=== PATIENT | male | born 1985 | race Caucasian/White ===

== ENCOUNTER 2016-04-02 02:27 | Emergency (ER) | payer OTHER ==
[~2016-04-02] VITALS: Ht 190.5 cm; Wt 145.1 kg
[2016-04-02] MEDS ORDERED: NKM (02:46)
[2016-04-02 02:50] VITALS: BP 136/84
[2016-04-02] MEDS ORDERED: PRILOSEC OTC20 MG ORAL (04:20)
[2016-04-02] MEDS ORDERED: BENTYL10 MG ORAL (04:20)
[2016-04-02 04:30] VITALS: BP 130/86
[2016-04-02] MEDS ORDERED: Dicyclomine HCl 10mg/5ml oral soln ORAL ONE (04:30)
[2016-04-02] MEDS ORDERED: Lidocaine 2% Visc 15ml soln ORAL ONE (04:30)
[2016-04-02 04:35] VITALS: BP 130/86
--- NOTE | 2016-04-02 09:57 | Emergency Room Report ---
History of Present Illness General Chief Complaint: Abdominal Pain Source: Patient Present Illness HPI The patient is a 31-year-old male who presented after increased right upper quadrant pain. Patient had onset of symptoms approximately 5 hours prior to arrival. Patient stated that he had similar type symptoms in the past. This is worsened by food. The patient denied any hematemesis or bloody stools. Patient stated that he had recently had increased alcohol ingestion over the weekend. He had prior appendectomy. Patient denied any fever. Pain had resolved by the time he was examined. Allergies: Coded Allergies: No Known Allergies (Unverified , 04/02/16) Patient History Past Medical History: see triage record Reviewed Nursing Documentation: PMH: Agreed, PSxH: Agreed Nursing Documentation-PMH Past Medical History: No Stated History Review of Systems All Other Systems: negative except mentioned in HPI Physical Exam Vital Signs Date Time Temp Pulse Resp B/P Pulse Ox O2 Delivery O2 Flow Rate FiO2 04/02/16 02:39 97.5 78 16 133/83 100 Room Air Sp02 EP Interpretation: reviewed, normal General Appearance: normal inspection, well appearing, no apparent distress, alert, GCS 15, obese Head: atraumatic ENT: normal ENT inspection, hearing grossly normal, normal voice Neck: normal inspection, full range of motion, supple, no bony tend Respiratory: normal inspection, lungs clear, normal breath sounds, no respiratory distress, no retraction, no wheezing Cardiovascular #1: regular rate, rhythm, no edema Gastrointestinal: normal inspection, normal bowel sounds, non tender, soft, no guarding, no hernia Genitourinary: no CVA tenderness Musculoskeletal: normal inspection, back normal, normal range of motion Neurologic: normal inspection, alert, responsive, speech normal Psychiatric: normal inspection, judgement/insight normal, mood/affect normal Skin: normal inspection, normal color, no rash Medical Decision Making Diagnostic Impression: Primary Impression: Abdominal pain ER Course Patient presented for abdominal pain. Differential diagnoses included ischemic bowel, appendicitis, perforated viscus, abdominal aortic aneurysm, inferior myocardial infarction, viral gastroenteritis Patient's benign exam and does not appear to require any further imaging or laboratory testing at this time. The patient was advised that he would need further outpatient testing. Patient was given a GI cocktail. The patient was advised to followup with gastroenterology in a general surgeon. He is advised to abstain from alcohol. Patient is advised to return if he began having persistent vomiting fever or hematemesis or other concerns. Last Vital Signs Date Time Temp Pulse Resp B/P Pulse Ox O2 Delivery O2 Flow Rate FiO2 04/02/16 04:35 98.0 85 16 130/86 100 Room Air Status: improved Disposition: HOME, SELF-CARE Condition: Stable Scripts Dicyclomine Hcl* (BENTYL*) 10 Mg Capsule 10 MG ORAL FOUR TIMES A DAY, #30 CAP Prov: JuanRex 04/02/16 Omeprazole Magnesium (PRILOSEC OTC) 20 Mg Tablet.dr 20 MG ORAL DAILY, #20 TAB Prov: Rex Martinez 04/02/16 Referrals: NOT CHOSEN IPA/MD,REFERRING (PCP) Patient Instructions: Abdominal Pain, Adult Rex Martinez Apr 02, 2016 09:57
== END 2016-04-02 04:35 | disposition home or self-care (01) ==
LOC: EMR 03:05
DX: R10.11 Right upper quadrant pain (principal)
CPT/HCPCS: 99284